=== PATIENT | female | born 1960 | race Caucasian/White ===

== ENCOUNTER 2017-01-17 20:03 | Emergency (ER) | payer OTHER ==
[~2017-01-17] VITALS: Ht 167.6 cm; Wt 90.9 kg
[~2017-01-17 20:03] MED LIST: DULO60CA44 PO; FAMO20 PO; HALO5 PO; PANT40TA25 PO; PREM625 PO; QUET100T PO; TEMA30 PO
[2017-01-17 20:56] LABS: BASOPHILS # (AUTO) 0.05 K/uL (0.00-0.20); BASOPHILS % (AUTO) 0.9 % (0.0-2.0); EOSINOPHILS # (AUTO) 0.15 K/uL (0.00-0.70); EOSINOPHILS % (AUTO) 2.63 % (1.0-6.0); HEMATOCRIT 31.1 % (36-46); HEMOGLOBIN 10.1 g/dL (12.0-16.0); LYMPHOCYTES # (AUTO) 1.8 K/uL (1.0-4.8); LYMPHOCYTES % (AUTO) 30.5 % (22.0-44.0); MEAN CORPUSCULAR HGB CONC 32.3 G/dL (31.0-37.0); MEAN CORPUSCULAR VOLUME 84 fL (80-100); MONOCYTES # (AUTO) 0.7 K/uL (0.1-1.0); MONOCYTES % (AUTO) 11.5 % (2.0-9.0); NEUTROPHILS # (AUTO) 3.1 K/uL (1.8-7.7); NEUTROPHILS % (AUTO) 54.4 % (40.0-70.0); PLATELET COUNT (AUTO) 263 K/uL (150-450); RED BLOOD CELL COUNT(AUTO) 3.72 MIL/uL (4.00-5.20); RED CELL DISTRIBUTION WIDTH 17.1 % (11.5-14.5); WHITE BLOOD COUNT (AUTO) 5.7 K/uL (4.5-11.0)
[2017-01-17] MEDS ORDERED: TRAM50TA4 PO (20:59)
[2017-01-17] MEDS ORDERED: DIVA250T25 PO (20:59)
[2017-01-17] MEDS ORDERED: DOXE10 PO (20:59)
[2017-01-17] MEDS ORDERED: MONT10TA21 PO (20:59)
[2017-01-17] MEDS ORDERED: GABA-529 PO (20:59)
[2017-01-17] MEDS ORDERED: DOCU250C91 PO (20:59)
[2017-01-17] MEDS ORDERED: ASPI81 PO (20:59)
[2017-01-17] MEDS ORDERED: SUMA25TA9 PO (20:59)
[2017-01-17] MEDS ORDERED: PRAZ1 PO (20:59)
[2017-01-17] MEDS ORDERED: BACL10TA PO (20:59)
[2017-01-17 21:06] LABS: ANION GAP 5 mmol/L (8-16); CALCIUM, TOTAL 9.2 mg/dL (8.8-10.5); CARBON DIOXIDE 32 mmol/L (22-29); CHLORIDE 104 mmol/L (98-107); CREATININE 0.91 mg/dL (0.60-1.30); GLOMERULAR FILTR. RATE CALC > 60 mL/min (>60); POTASSIUM 4.3 mmol/L (3.5-5.1); SODIUM SERUM 141 mmol/L (136-145); UREA NITROGEN, BLOOD 15 mg/dL (7-18)
[2017-01-17 21:13] LABS: ALANINE AMINOTRANSFERASE 20 U/L (12-78); ALBUMIN 3.5 g/dL (3.4-5.0); ASPARTATE AMINOTRANSFERASE 13 U/L (15-37); BILIRUBIN,TOTAL 0.2 mg/dL (0.1-1.0); TOTAL PROTEIN, SERUM 6.9 g/dL (6.4-8.2)
[2017-01-17] MEDS ORDERED: DONNATAL/LIDOCAINE/MAALOX 55 ML BOTTLE PO ONE (21:45)
[2017-01-17] MEDS ORDERED: PANTOPRAZOLE SODIUM 40 MG DR TABLET PO ONE (21:45)
[2017-01-17 22:46] VITALS: BP 131/65
== END 2017-01-17 22:50 | disposition home or self-care (01) ==
LOC: EMS 20:04
DX: K29.70 Gastritis, unspecified, without bleeding (principal); J44.9 Chronic obstructive pulmonary disease, unspecified; Z87.891 Personal history of nicotine dependence; Z79.82 Long term (current) use of aspirin
CPT/HCPCS: 80053; 83690; 85025; 93005; 99285; Z7610

== ENCOUNTER 2018-04-26 07:52 | Emergency (ER) | payer OTHER ==
[~2018-04-26] VITALS: Ht 167.6 cm; Wt 104.5 kg
[~2018-04-26 07:52] MED LIST changes: +ASPI81 PO; +BACL10TA PO; +DIVA250T25 PO; +DOCU250C91 PO; +DOXE10 PO; -FAMO20 PO; +GABA-529 PO; -HALO5 PO; +HALO5TAB2 PO; +MONT10TA21 PO; +PRAZ1 PO; -PREM625 PO; +SUMA25TA9 PO; -TEMA30 PO; +TRAM50TA4 PO
[2018-04-26] MEDS ORDERED: SUCR1ORA5 PO (08:14)
[2018-04-26] MEDS ORDERED: LEVAHFA IH (08:14)
[2018-04-26] MEDS ORDERED: COMP10 PO (08:14)
[2018-04-26] MEDS ORDERED: DICL2100G TP (08:14)
[2018-04-26 10:11] LABS: HEMOGLOBIN 10.7 g/dL (12.0-16.0); MEAN CORPUSCULAR HEMOGLOBIN 28.8 pg (26.0-34.0); MEAN CORPUSCULAR HGB CONC 32.5 G/dL (31.0-37.0); MEAN CORPUSCULAR VOLUME 89 fL (80-100); PLATELET COUNT (AUTO) 267 K/uL (150-450); RED BLOOD CELL COUNT(AUTO) 3.72 MIL/uL (4.00-5.20); RED CELL DISTRIBUTION WIDTH 19.8 % (11.5-14.5)
[2018-04-26] MEDS ORDERED: SODIUM CHLORIDE 0.9% 1,000 ML IV ONE (10:15)
[2018-04-26 10:19] LABS: ANION GAP 5 mmol/L (8-16); CALCIUM, TOTAL 9.6 mg/dL (8.8-10.5); CARBON DIOXIDE 28 mmol/L (22-29); CHLORIDE 104 mmol/L (98-107); CREATININE 0.94 mg/dL (0.60-1.30); GLOMERULAR FILTR. RATE CALC > 60 mL/min (>60); GLUCOSE,RANDOM 111 mg/dL (70-110); POTASSIUM 4.1 mmol/L (3.5-5.1); SODIUM SERUM 137 mmol/L (136-145); UREA NITROGEN, BLOOD 15 mg/dL (7-18)
[2018-04-26 10:23] LABS: INR 0.9 (0.9-1.1); PROTHROMBIN TIME 9.9 SEC (9.4-11.6)
[2018-04-26 10:27] LABS: ALANINE AMINOTRANSFERASE 28 U/L (12-78); ALBUMIN 3.7 g/dL (3.4-5.0); ALKALINE PHOSPHATASE 82 U/L (46-116); ASPARTATE AMINOTRANSFERASE 18 U/L (15-37); BILIRUBIN,TOTAL 0.5 mg/dL (0.1-1.0); TOTAL PROTEIN, SERUM 7.1 g/dL (6.4-8.2)
[2018-04-26 10:32] LABS: BAND NEUTROPHILS % (MANUAL) 11 % (0-5); LYMPHOCYTES % (MANUAL) 10 % (22-44); MONOCYTES % (MANUAL) 7 % (2-9); SEGMENTED NEUTROPHILS % 72 % (40-70)
[2018-04-26 12:13] LABS: BILIRUBIN,URINE NEGATIVE (NEGATIVE); GLUCOSE, URINE (UA) NEGATIVE (NEGATIVE); KETONES,URINE NEGATIVE (NEGATIVE); LEUKOCYTE ESTERASE ,URINE NEGATIVE (NEGATIVE); NITRATE,URINE NEGATIVE (NEGATIVE); OCCULT BLOOD,URINE NEGATIVE (NEGATIVE); PROTEIN,URINE NEGATIVE (NEGATIVE); UROBILINOGEN,URINE 0.2 mg/dL (<=1.0)
[2018-04-26 12:26] LABS: APPEARANCE,URINE SLIGHTLY CLOUDY (CLEAR)
[2018-04-26 12:27] LABS: BACTERIA,URINE Rare /HPF (None Seen); RBC,URINE None Seen /HPF (0-2); SQUAMOUS EPITHELIAL CELL,UR Many /LPF (None Seen); WBC,URINE 0-2 /HPF (0-5)
[2018-04-26] MEDS ORDERED: PANTOPRAZOLE SODIUM 40 MG/VIAL IVP ONE (12:45)
[2018-04-26] MEDS ORDERED: PRAZ2 PO (13:35)
[2018-04-26 13:47] VITALS: BP 128/70
== END 2018-04-26 13:57 | disposition home or self-care (01) ==
LOC: EMS 07:54
DX: R42 Dizziness and giddiness (principal); R19.5 Other fecal abnormalities; J44.9 Chronic obstructive pulmonary disease, unspecified; Z87.891 Personal history of nicotine dependence
CPT/HCPCS: 36415; 71045; 80053; 81001; 82271; 83880; 84484; 85025; 85610; 85730; 93005; 96361; 96374; 99285; C9113; J7030

== ENCOUNTER 2018-09-10 12:03 | Emergency (ER) | payer MEDICARE, OTHER ==
[~2018-09-10] VITALS: Ht 167.6 cm; Wt 102.7 kg
[~2018-09-10 12:03] MED LIST changes: -ASPI81 PO; +COMP10 PO; +DICL2100G TP; -DIVA250T25 PO; +LEVAHFA IH; -PRAZ1 PO; +PRAZ2 PO; +SUCR1ORA5 PO; -TRAM50TA4 PO
[2018-09-10] MEDS ORDERED: HYDR-4061 PO (12:19)
[2018-09-10] MEDS ORDERED: VITAD1000 PO (12:19)
[2018-09-10] MEDS ORDERED: MONT10TA21 PO (12:19)
[2018-09-10] MEDS ORDERED: ACET-2902 PO (12:19)
[2018-09-10] MEDS ORDERED: TOPI25 PO (12:19)
[2018-09-10] MEDS ORDERED: SODIUM CHLORIDE 0.9% 1,000 ML IV ONE (12:24)
[2018-09-10] MEDS ORDERED: ACETAMINOPHEN 500 MG TABLET PO ONE (12:30)
[2018-09-10 12:53] LABS: BASOPHILS % (AUTO) 0.4 % (0.0-2.0); EOSINOPHILS % (AUTO) 0.2 % (1.0-6.0); HEMATOCRIT 24.9 % (36-46); HEMOGLOBIN 7.7 g/dL (12.0-16.0); LYMPHOCYTES # (AUTO) 0.4 K/uL (1.0-4.8); LYMPHOCYTES % (AUTO) 2.7 % (22.0-44.0); MEAN CORPUSCULAR HEMOGLOBIN 25.6 pg (26.0-34.0); MEAN CORPUSCULAR HGB CONC 31.1 G/dL (31.0-37.0); MEAN CORPUSCULAR VOLUME 82 fL (80-100); MONOCYTES # (AUTO) 1.1 K/uL (0.1-1.0); MONOCYTES % (AUTO) 7.7 % (2.0-9.0); NEUTROPHILS # (AUTO) 12.6 K/uL (1.8-7.7); PLATELET COUNT (AUTO) 245 K/uL (150-450); RED BLOOD CELL COUNT(AUTO) 3.02 MIL/uL (4.00-5.20); RED CELL DISTRIBUTION WIDTH 18.7 % (11.5-14.5)
[2018-09-10 13:04] LABS: ANION GAP 12 mmol/L (8-16); CALCIUM, TOTAL 8.4 mg/dL (8.8-10.5); CARBON DIOXIDE 24 mmol/L (22-29); CHLORIDE 107 mmol/L (98-107); CREATININE 0.87 mg/dL (0.60-1.30); GLOMERULAR FILTR. RATE CALC > 60 mL/min (>60); GLUCOSE,RANDOM 127 mg/dL (70-110); POTASSIUM 3.3 mmol/L (3.5-5.1); SODIUM SERUM 143 mmol/L (136-145); UREA NITROGEN, BLOOD 13 mg/dL (7-18)
[2018-09-10 13:10] LABS: ALANINE AMINOTRANSFERASE 20 U/L (12-78); ALBUMIN 3.3 g/dL (3.4-5.0); ALKALINE PHOSPHATASE 89 U/L (46-116); ASPARTATE AMINOTRANSFERASE 11 U/L (15-37); BILIRUBIN,TOTAL 0.4 mg/dL (0.1-1.0); CREATINE KINASE, TOTAL ONLY 46 U/L (26-192); TOTAL PROTEIN, SERUM 6.5 g/dL (6.4-8.2)
[2018-09-10 13:14] LABS: INFLUENZA TYPE A NEGATIVE FOR TYPE A (NEGATIVE); INFLUENZA TYPE B NEGATIVE FOR TYPE B (NEGATIVE)
[2018-09-10 13:34] LABS: APPEARANCE,URINE CLEAR (CLEAR); BILIRUBIN,URINE NEGATIVE (NEGATIVE); GLUCOSE, URINE (UA) NEGATIVE (NEGATIVE); KETONES,URINE NEGATIVE (NEGATIVE); LEUKOCYTE ESTERASE ,URINE NEGATIVE (NEGATIVE); NITRATE,URINE NEGATIVE (NEGATIVE); OCCULT BLOOD,URINE NEGATIVE (NEGATIVE); PH,URINE 7.5 (5.0-8.0); PROTEIN,URINE NEGATIVE (NEGATIVE); UROBILINOGEN,URINE 0.2 mg/dL (<=1.0)
[2018-09-10] MEDS ORDERED: ACETAMINOPHEN/CODEINE 300-30 MG TABLET PO ONE (14:30)
[2018-09-10] MEDS ORDERED: IPRATROPIUM BROMIDE 0.5 MG/2.5 ML NEB SOLUTION NEB ONE (14:30)
[2018-09-10] MEDS ORDERED: ALBUTEROL SULFATE 2.5 MG/0.5 ML NEB SOLUTION NEB ONE (14:30)
[2018-09-10] MEDS ORDERED: GuaiFENesin/D-METHORPHAN [SUGAR-FREE] 200-20MG/10 ML SYRUP UDCUP PO ONE (14:30)
[2018-09-10 15:27] VITALS: BP 123/68
== END 2018-09-10 15:47 | disposition home or self-care (01) ==
LOC: EDUNIT# 12:03 → EMS 12:04
DX: J40 Bronchitis, not specified as acute or chronic (principal); R07.89 Other chest pain; E87.6 Hypokalemia; J44.9 Chronic obstructive pulmonary disease, unspecified; F31.9 Bipolar disorder, unspecified; Z87.891 Personal history of nicotine dependence; Z79.899 Other long term (current) drug therapy
CPT/HCPCS: 36415; 71045; 80053; 81003; 82550; 83605; 84484; 85025; 85610; 85730; 87804; 93005; 94640; 99285; J7030

== ENCOUNTER 2018-09-15 16:38 | Inpatient (IN) | payer MEDICARE, OTHER ==
[~2018-09-15] VITALS: Ht 167.6 cm; Wt 100.0 kg
[~2018-09-15 16:38] MED LIST changes: +ACET-2902 PO; +HYDR-4061 PO; +TOPI25 PO; +VITAD1000 PO
[2018-09-15] MEDS ORDERED: IBUP-2354 PO (16:54)
[2018-09-15] MEDS ORDERED: DIPH25 PO (16:54)
[2018-09-15] MEDS ORDERED: LEVALBUTEROL HCL 1.25 MG/0.5 ML NEB SOLUTION NEB ONE (17:00)
[2018-09-15] MEDS ORDERED: IPRATROPIUM BROMIDE 0.5 MG/2.5 ML NEB SOLUTION NEB ONE (17:00)
[2018-09-15] MEDS ORDERED: 0.9% SODIUM CHLORIDE 5 ML NEB SOLUTION NEB ONE (17:12)
[2018-09-15 18:01] LABS: ABG A-A DIFF O2 131.6 mmHg (10-20.0); ABG BASE EXCESS -4.5 mmol/L (-2.0-3.0); ABG CARBOXYHEMOGLOBIN 1.2 % (0.0-1.5); ABG METHEMOGLOBIN 0.3 % (0.0-1.5); ABG OXYGEN CONTENT 10.6 mL/dL (15.0-23.0); ABG OXYGEN SATURATION 95.2 % (95.0-98.0); ABG OXYHEMOGLOBIN 93.8 % (94.0-100.0); ABG PCO2 36 mmHg (35-45); ABG PH 7.381 (7.35-7.450); PO2, ARTERIAL BG 83.7 mmHg (84.0-92.0); SOURCE, BLOOD GAS ARTERIAL
[2018-09-15 18:03] LABS: ABG TOTAL HEMOGLOBIN 7.9 G/dL (12.0-18.0)
[2018-09-15 18:04] LABS: O2 DEVICE,BLOOD GAS CANNULA (ROOM AIR); SITE, BLOOD GAS LFT RADIAL
[2018-09-15 18:43] LABS: BASOPHILS % (AUTO) 0.5 % (0.0-2.0); EOSINOPHILS % (AUTO) 0.4 % (1.0-6.0); HEMATOCRIT 23.9 % (36-46); HEMOGLOBIN 7.5 g/dL (12.0-16.0); LYMPHOCYTES # (AUTO) 0.7 K/uL (1.0-4.8); LYMPHOCYTES % (AUTO) 6.2 % (22.0-44.0); MEAN CORPUSCULAR HEMOGLOBIN 25.4 pg (26.0-34.0); MEAN CORPUSCULAR HGB CONC 31.2 G/dL (31.0-37.0); MEAN CORPUSCULAR VOLUME 82 fL (80-100); MONOCYTES # (AUTO) 0.8 K/uL (0.1-1.0); NEUTROPHILS # (AUTO) 9.9 K/uL (1.8-7.7); PLATELET COUNT (AUTO) 301 K/uL (150-450); RED BLOOD CELL COUNT(AUTO) 2.93 MIL/uL (4.00-5.20); RED CELL DISTRIBUTION WIDTH 18.1 % (11.5-14.5)
[2018-09-15] MEDS ORDERED: FUROSEMIDE 40 MG/4 ML VIAL IVP ONE (18:45)
[2018-09-15] MEDS ORDERED: GABA-531 PO (18:51)
[2018-09-15 19:06] LABS: NEUTROPHILS % (AUTO) 85.9 % (40.0-70.0)
[2018-09-15 19:16] LABS: PROTHROMBIN TIME 10.3 SEC (9.4-11.6)
[2018-09-15 19:17] LABS: ANION GAP 13 mmol/L (8-16); CALCIUM, TOTAL 8.8 mg/dL (8.8-10.5); CARBON DIOXIDE 23 mmol/L (22-29); CHLORIDE 104 mmol/L (98-107); CREATININE 0.79 mg/dL (0.60-1.30); GLOMERULAR FILTR. RATE CALC > 60 mL/min (>60); GLUCOSE,RANDOM 149 mg/dL (70-110); POTASSIUM 3.9 mmol/L (3.5-5.1); SODIUM SERUM 140 mmol/L (136-145); UREA NITROGEN, BLOOD 12 mg/dL (7-18)
[2018-09-15 19:22] LABS: ALANINE AMINOTRANSFERASE 17 U/L (12-78); ALBUMIN 2.8 g/dL (3.4-5.0); ALKALINE PHOSPHATASE 100 U/L (46-116); ASPARTATE AMINOTRANSFERASE 12 U/L (15-37); BILIRUBIN,TOTAL 0.2 mg/dL (0.1-1.0); CREATINE KINASE, TOTAL ONLY 42 U/L (26-192); TOTAL PROTEIN, SERUM 7.2 g/dL (6.4-8.2)
[2018-09-15 19:35] LABS: B-TYPE NATRIURETIC PEPTIDE 238 pg/mL (0-100)
[2018-09-15 19:41] LABS: APPEARANCE,URINE CLEAR (CLEAR); BILIRUBIN,URINE NEGATIVE (NEGATIVE); GLUCOSE, URINE (UA) NEGATIVE (NEGATIVE); KETONES,URINE NEGATIVE (NEGATIVE); LEUKOCYTE ESTERASE ,URINE NEGATIVE (NEGATIVE); NITRATE,URINE NEGATIVE (NEGATIVE); OCCULT BLOOD,URINE NEGATIVE (NEGATIVE); PROTEIN,URINE NEGATIVE (NEGATIVE); UROBILINOGEN,URINE 0.2 mg/dL (<=1.0)
[2018-09-15 19:57] LABS: AMPHET/METH SCREEN,URINE NEGATIVE (NEGATIVE); BARBITURATE SCREEN, URINE NEGATIVE (NEGATIVE); BENZODIAZEPINES SCREEN,URINE NEGATIVE (NEGATIVE); CANNABINOID SCREEN,URINE NEGATIVE (NEGATIVE); COCAINE SCREEN,URINE NEGATIVE (NEGATIVE); METHADONE SCREEN, URINE NEGATIVE (NEGATIVE); OPIATE SCREEN,URINE POSITIVE (NEGATIVE)
[2018-09-15 19:58] LABS: PHENCYCLIDINE SCREEN,URINE NEGATIVE (NEGATIVE)
[2018-09-15] MEDS ORDERED: ONDANSETRON HCL 4 MG/2 ML VIAL IVP PRN ×2 (21:00→22:00)
[2018-09-15] MEDS ORDERED: MethylPREDNISolone SOD SUCC 125 MG/2 ML VIAL IVP ONE (21:00)
[2018-09-15] MEDS ORDERED: 0.9% SODIUM CHLORIDE 10 ML SYRINGE IVP PRN (21:00)
[2018-09-15] MEDS ORDERED: ACETAMINOPHEN 325 MG TABLET PO PRN ×2 (21:00→22:00)
[2018-09-15] MEDS ORDERED: LEVOFLOXACIN 500 MG/D5% WATER 100 ML IV ONE (21:00)
[2018-09-15] MEDS ORDERED: MAGNESIUM HYDROXIDE SUSPENSION 30 ML UDCUP PO PRN (22:00)
[2018-09-15] MEDS ORDERED: SUMAtriptan SUCCINATE 25 MG TABLET PO PRN (22:00)
[2018-09-15] MEDS ORDERED: BISACODYL 10 MG RECTAL RECTAL SUPPOSITORY PR PRN (22:00)
[2018-09-15] MEDS ORDERED: MORPHINE SULFATE 4 MG/ML SYRINGE IVP PRN (22:00)
[2018-09-15] MEDS ORDERED: ZOLPIDEM TARTRATE 5 MG TABLET PO PRN (22:00)
[2018-09-15 23:17] VITALS: BP 155/73
[2018-09-16] MEDS ORDERED: DULO60CA44 PO (00:21)
[2018-09-16] MEDS ORDERED: FERG325 PO (00:25)
[2018-09-16] MEDS: GABAPENTIN 300 MG CAPSULE PO SCH ×5 (01:18→20:15)
[2018-09-16] MEDS: BACLOFEN 10 MG TABLET PO SCH ×3 (01:18→20:15)
[2018-09-16] MEDS: DiphenhydrAMINE HCL 50 MG CAPSULE PO SCH ×3 (01:37→20:14)
[2018-09-16] MEDS: HALOPERIDOL 5 MG TABLET PO SCH ×3 (01:37→20:14)
[2018-09-16] MEDS: QUEtiapine FUMARATE 200 MG TABLET PO SCH ×2 (01:38→20:15)
[2018-09-16] MEDS: TOPIRAMATE 25 MG TABLET PO SCH ×3 (01:38→20:16)
[2018-09-16] MEDS ORDERED: ALBUTEROL SULFATE 2.5 MG/0.5 ML NEB SOLUTION NEB SCH (02:00)
[2018-09-16] MEDS ORDERED: IPRATROPIUM BROMIDE 0.5 MG/2.5 ML NEB SOLUTION NEB SCH (02:00)
[2018-09-16 05:36] VITALS: BP 127/76
[2018-09-16 05:36] LABS: BASOPHILS % (AUTO) 0.2 % (0.0-2.0); EOSINOPHILS % (AUTO) 0 % (1.0-6.0); HEMATOCRIT 26.2 % (36-46); HEMOGLOBIN 8.2 g/dL (12.0-16.0); LYMPHOCYTES # (AUTO) 0.6 K/uL (1.0-4.8); MEAN CORPUSCULAR HEMOGLOBIN 25.4 pg (26.0-34.0); MEAN CORPUSCULAR HGB CONC 31.3 G/dL (31.0-37.0); MEAN CORPUSCULAR VOLUME 81 fL (80-100); MONOCYTES # (AUTO) 0.2 K/uL (0.1-1.0); MONOCYTES % (AUTO) 1.8 % (2.0-9.0); NEUTROPHILS # (AUTO) 8.1 K/uL (1.8-7.7); PLATELET COUNT (AUTO) 330 K/uL (150-450); RED BLOOD CELL COUNT(AUTO) 3.23 MIL/uL (4.00-5.20); RED CELL DISTRIBUTION WIDTH 17.9 % (11.5-14.5)
[2018-09-16 05:45] LABS: ALANINE AMINOTRANSFERASE 17 U/L (12-78); ALBUMIN 2.9 g/dL (3.4-5.0); ALKALINE PHOSPHATASE 101 U/L (46-116); ANION GAP 9 mmol/L (8-16); ASPARTATE AMINOTRANSFERASE 11 U/L (15-37); BILIRUBIN,TOTAL 0.2 mg/dL (0.1-1.0); CALCIUM, TOTAL 9.2 mg/dL (8.8-10.5); CARBON DIOXIDE 26 mmol/L (22-29); CHLORIDE 101 mmol/L (98-107); CREATININE 0.82 mg/dL (0.60-1.30); GLOMERULAR FILTR. RATE CALC > 60 mL/min (>60); GLUCOSE,RANDOM 157 mg/dL (70-110); PHOSPHORUS 4.2 mg/dL (2.5-4.9); POTASSIUM 3.7 mmol/L (3.5-5.1); SODIUM SERUM 136 mmol/L (136-145); TOTAL PROTEIN, SERUM 7.7 g/dL (6.4-8.2); UREA NITROGEN, BLOOD 12 mg/dL (7-18)
[2018-09-16 07:25] VITALS: BP 136/69
[2018-09-16] MEDS: PANTOPRAZOLE SODIUM 40 MG DR TABLET PO SCH (08:06)
[2018-09-16] MEDS: HEPARIN SODIUM,PORCINE 5,000 UNITS/ML VIAL SQ SCH ×2 (08:06→20:16)
[2018-09-16] MEDS: CHOLECALCIFEROL (VIT D3) 1,000 UNITS TABLET PO SCH (08:07)
[2018-09-16] MEDS: MONTELUKAST SODIUM 10 MG TABLET PO SCH (08:08)
[2018-09-16] MEDS: PROCHLORPERAZINE MALEATE 10 MG TABLET PO SCH ×4 (08:08→20:14)
[2018-09-16] MEDS: DULoxetine HCL 60 MG CAPSULE PO SCH (08:09)
[2018-09-16] MEDS ORDERED: QUEtiapine FUMARATE 100 MG TABLET PO PRN (09:00)
[2018-09-16] MEDS ORDERED: QUEtiapine FUMARATE 100 MG TABLET PO SCH (09:00)
[2018-09-16] MEDS ORDERED: BACLOFEN 10 MG TABLET PO SCH (09:00)
[2018-09-16] MEDS ORDERED: GABAPENTIN 300 MG CAPSULE PO SCH (09:00)
[2018-09-16] MEDS ORDERED: HALOPERIDOL 5 MG TABLET PO SCH (09:00)
[2018-09-16] MEDS ORDERED: TOPIRAMATE 25 MG TABLET PO SCH (09:00)
[2018-09-16 12:03] VITALS: BP 126/66
[2018-09-16 15:49] VITALS: BP 133/74
[2018-09-16] MEDS: IPRATROPIUM BROMIDE 0.5 MG/2.5 ML NEB SOLUTION NEB PRN (18:51)
[2018-09-16] MEDS: ALBUTEROL SULFATE 2.5 MG/0.5 ML NEB SOLUTION NEB PRN (18:51)
[2018-09-16] MEDS ORDERED: SODIUM CHLORIDE 0.9% 500 ML IV ONE (20:06)
[2018-09-16] MEDS: LEVOFLOXACIN 500 MG/D5% WATER 100 ML IV SCH (20:13)
[2018-09-16 23:50] VITALS: BP 129/76
[2018-09-17 03:30] VITALS: BP 102/60
[2018-09-17] MEDS: IPRATROPIUM BROMIDE 0.5 MG/2.5 ML NEB SOLUTION NEB PRN ×4 (03:37→19:35)
[2018-09-17] MEDS: ALBUTEROL SULFATE 2.5 MG/0.5 ML NEB SOLUTION NEB PRN ×4 (03:37→19:35)
[2018-09-17 07:47] VITALS: BP 116/67
[2018-09-17] MEDS: DULoxetine HCL 60 MG CAPSULE PO SCH (09:16)
[2018-09-17] MEDS: PANTOPRAZOLE SODIUM 40 MG DR TABLET PO SCH (09:16)
[2018-09-17] MEDS: HEPARIN SODIUM,PORCINE 5,000 UNITS/ML VIAL SQ SCH ×2 (09:16→20:03)
[2018-09-17] MEDS: PROCHLORPERAZINE MALEATE 10 MG TABLET PO SCH ×4 (09:16→20:07)
[2018-09-17] MEDS: DiphenhydrAMINE HCL 50 MG CAPSULE PO SCH ×2 (09:16→20:04)
[2018-09-17] MEDS: HALOPERIDOL 5 MG TABLET PO SCH ×2 (09:17→20:07)
[2018-09-17] MEDS: CHOLECALCIFEROL (VIT D3) 1,000 UNITS TABLET PO SCH (09:17)
[2018-09-17] MEDS: MONTELUKAST SODIUM 10 MG TABLET PO SCH (09:17)
[2018-09-17] MEDS: TOPIRAMATE 25 MG TABLET PO SCH ×2 (09:17→20:04)
[2018-09-17] MEDS: BACLOFEN 10 MG TABLET PO SCH ×2 (09:17→20:04)
[2018-09-17] MEDS: GABAPENTIN 300 MG CAPSULE PO SCH ×4 (09:18→20:04)
[2018-09-17] MEDS: OxyCODONE HCL/ACETAMINOPHEN 5-325 MG TABLET PO PRN ×2 (09:23→18:58)
[2018-09-17 11:52] VITALS: BP 113/59
[2018-09-17 15:43] VITALS: BP 114/73
[2018-09-17 20:02] VITALS: BP 122/82
[2018-09-17] MEDS: LEVOFLOXACIN 500 MG/D5% WATER 100 ML IV SCH (20:03)
[2018-09-17] MEDS: QUEtiapine FUMARATE 200 MG TABLET PO SCH (20:07)
[2018-09-17 23:25] VITALS: BP 112/58
[2018-09-18 05:30] VITALS: BP 101/62
[2018-09-18 08:00] VITALS: BP 101/57
[2018-09-18] MEDS: PROCHLORPERAZINE MALEATE 10 MG TABLET PO SCH ×2 (08:33→12:43)
[2018-09-18] MEDS: GABAPENTIN 300 MG CAPSULE PO SCH ×2 (08:33→12:43)
[2018-09-18] MEDS: MONTELUKAST SODIUM 10 MG TABLET PO SCH (08:33)
[2018-09-18] MEDS: DULoxetine HCL 60 MG CAPSULE PO SCH (08:34)
[2018-09-18] MEDS: DiphenhydrAMINE HCL 50 MG CAPSULE PO SCH (08:34)
[2018-09-18] MEDS: CHOLECALCIFEROL (VIT D3) 1,000 UNITS TABLET PO SCH (08:34)
[2018-09-18] MEDS: HALOPERIDOL 5 MG TABLET PO SCH (08:34)
[2018-09-18] MEDS: BACLOFEN 10 MG TABLET PO SCH (08:34)
[2018-09-18] MEDS: PANTOPRAZOLE SODIUM 40 MG DR TABLET PO SCH (08:35)
[2018-09-18] MEDS: HEPARIN SODIUM,PORCINE 5,000 UNITS/ML VIAL SQ SCH (08:35)
[2018-09-18] MEDS: TOPIRAMATE 25 MG TABLET PO SCH (08:35)
[2018-09-18] MEDS: OxyCODONE HCL/ACETAMINOPHEN 5-325 MG TABLET PO PRN (08:41)
[2018-09-18] MEDS: IPRATROPIUM BROMIDE 0.5 MG/2.5 ML NEB SOLUTION NEB PRN (08:46)
[2018-09-18] MEDS: ALBUTEROL SULFATE 2.5 MG/0.5 ML NEB SOLUTION NEB PRN (08:46)
[2018-09-18] MEDS ORDERED: BENZONATATE 100 MG CAPSULE PO SCH (09:00)
[2018-09-18 09:23] LABS: BASOPHILS % (AUTO) 0.6 % (0.0-2.0); EOSINOPHILS % (AUTO) 1.2 % (1.0-6.0); LYMPHOCYTES # (AUTO) 1.3 K/uL (1.0-4.8); LYMPHOCYTES % (AUTO) 16.1 % (22.0-44.0); MEAN CORPUSCULAR HEMOGLOBIN 25.4 pg (26.0-34.0); MEAN CORPUSCULAR HGB CONC 31.9 G/dL (31.0-37.0); MEAN CORPUSCULAR VOLUME 80 fL (80-100); MONOCYTES # (AUTO) 0.6 K/uL (0.1-1.0); NEUTROPHILS # (AUTO) 5.8 K/uL (1.8-7.7); NEUTROPHILS % (AUTO) 74.1 % (40.0-70.0); PLATELET COUNT (AUTO) 333 K/uL (150-450); RED BLOOD CELL COUNT(AUTO) 3.13 MIL/uL (4.00-5.20); RED CELL DISTRIBUTION WIDTH 17.9 % (11.5-14.5)
[2018-09-18 09:31] LABS: ANION GAP 11 mmol/L (8-16); CALCIUM, TOTAL 9.1 mg/dL (8.8-10.5); CARBON DIOXIDE 27 mmol/L (22-29); CHLORIDE 102 mmol/L (98-107); CREATININE 0.83 mg/dL (0.60-1.30); GLOMERULAR FILTR. RATE CALC > 60 mL/min (>60); GLUCOSE,RANDOM 102 mg/dL (70-110); SODIUM SERUM 140 mmol/L (136-145); UREA NITROGEN, BLOOD 18 mg/dL (7-18)
[2018-09-18 09:36] LABS: ALANINE AMINOTRANSFERASE 39 U/L (12-78); ALBUMIN 2.7 g/dL (3.4-5.0); ALKALINE PHOSPHATASE 99 U/L (46-116); ASPARTATE AMINOTRANSFERASE 18 U/L (15-37); BILIRUBIN,TOTAL 0.2 mg/dL (0.1-1.0); TOTAL PROTEIN, SERUM 7.3 g/dL (6.4-8.2)
[2018-09-18 11:32] VITALS: BP 105/62
[2018-09-18 11:34] VITALS: BP 105/62
[2018-09-18 15:00] VITALS: BP 101/59
[2018-09-18] MEDS ORDERED: BENZ-51 PO (15:19)
[2018-09-18] MEDS ORDERED: LEVO250 PO (15:19)
[2018-09-18 16:00] VITALS: BP 119/67
[2018-09-18] MEDS ORDERED: PRAZOSIN HCL 2 MG CAPSULE PO SCH (21:00)
== END 2018-09-18 16:20 | disposition home or self-care (01) | DRG 871 ==
LOC: EMS 17:37 → 6N 20:56
PROVIDERS: ADMIT Internal Medicine; ATTEND Internal Medicine
DX: A41.9 Sepsis, unspecified organism (principal); J18.9 Pneumonia, unspecified organism; J96.01 Acute respiratory failure with hypoxia; J81.1 Chronic pulmonary edema; J44.0 Chronic obstructive pulmonary disease with (acute) lower respiratory infection; K21.9 Gastro-esophageal reflux disease without esophagitis; E55.9 Vitamin D deficiency, unspecified; F41.8 Other specified anxiety disorders; G43.909 Migraine, unspecified, not intractable, without status migrainosus; M79.7 Fibromyalgia; M19.90 Unspecified osteoarthritis, unspecified site; J44.9 Chronic obstructive pulmonary disease, unspecified; D64.9 Anemia, unspecified; F31.9 Bipolar disorder, unspecified; I10 Essential (primary) hypertension; Z87.891 Personal history of nicotine dependence; Z98.51 Tubal ligation status; Z23 Encounter for immunization; Z79.899 Other long term (current) drug therapy; Z88.8 Allergy status to other drugs, medicaments and biological substances
CPT/HCPCS: 82805; 83036; 83605; 83735; 84100; 86850; 86870; 86880; 86900; 86901; 86904; 86905; 86906; 86922; 86931; 86971; 87040; 90686; 93005; 94640; 96365; 96375; G0378; J1644; J1940; J1956; J2930; J7040